=== PATIENT | male | born 1955 | race Asian ===

== ENCOUNTER 2020-11-29 08:36 | Emergency (ER) | payer MEDICARE, OTHER ==
[~2020-11-29] VITALS: Ht 167.6 cm; Wt 59.0 kg
[2020-11-29] VITALS (7 sets, daily range): BP systolic 116–139; BP diastolic 80–94
--- NOTE | 2020-11-29 09:00 | NUR ---
ED Nurse Note: admitted to ER with complaining of palpaltations for the last two days, denies any chest pain or discomformt. breathing with no distress on room air, alert and talkative, he is aware of name, time, place, and situation.
[2020-11-29] MEDS ORDERED: PRILOSEC OTC20 MG ORAL (09:04)
[2020-11-29] MEDS ORDERED: ALBUTEROL2.5 MG/3 M INH (09:04)
[2020-11-29] MEDS ORDERED: FENOFIBRATE200 MG ORAL (09:04)
[2020-11-29] MEDS ORDERED: SPIRIVA18 MCG INH (09:04)
[2020-11-29] MEDS ORDERED: SINGULAIR10 MG ORAL (09:04)
[2020-11-29] MEDS ORDERED: ASPIRIN81 MG ORAL (09:04)
[2020-11-29] MEDS ORDERED: METOPROLOL TART50 M1 ORAL (09:04)
[2020-11-29] MEDS ORDERED: HYDROCHLOROTHIA25 MG ORAL (09:04)
--- NOTE | 2020-11-29 09:14 | Emergency Room Report ---
History of Present Illness General Chief Complaint: Palpitations Present Illness HPI 65-year-old male with history of CAD, hypertension, hyperlipidemia, remote history of paroxysmal A. fib formally on warfarin but no longer, here with palpitations. 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 Says that over the past 4 days he has been intermittently having short episodes of palpitations where he feels as though his heart rate is increased. Patient recently tested negative for COVID- 19 several days ago. Denies fevers, chills, chest pain, back pain, abdominal pain, nausea, vomiting, diarrhea, dysuria, diaphoresis. Has a merchant banker with whom he follows closely. Allergies: Coded Allergies: No Known Allergies (Unverified , 11/29/20) COVID-19 Screening Contact w/high risk pt: No Experienced COVID-19 symptoms?: No COVID-19 Testing performed AUTOMATION DRIVER: No Nursing Documentation-PMH Hx Hypertension: Yes Hx COPD: Yes Review of Systems All Other Systems: negative except mentioned in HPI Physical Exam Vital Signs Date Time Temp Pulse Resp B/P (MAP) Pulse Ox O2 Delivery O2 Flow Rate FiO2 11/29/20 08:46 98.2 108 18 130/80 (97) 98 Room Air Sp02 EP Interpretation: reviewed, normal General Appearance: no apparent distress, alert, non-toxic Head: normocephalic, atraumatic Eyes: bilateral eye normal inspection, bilateral eye PERRL ENT: hearing grossly normal, normal pharynx, no angioedema, normal voice Neck: full range of motion, supple/symm/no masses Respiratory: chest non-tender, lungs clear, normal breath sounds, speaking full sentences Cardiovascular #1: regular rate, rhythm, no edema Cardiovascular #2: 2+ carotid (R), 2+ carotid (L), 2+ radial (R), 2+ radial (L), 2+ dorsalis pedis (R), 2+ dorsalis pedis (L) Gastrointestinal: normal bowel sounds, non tender, soft, non-distended, no guarding, no rebound Rectal: deferred Genitourinary: normal inspection, no CVA tenderness Musculoskeletal: back normal, normal range of motion, gait/station normal, non- tender Neurologic: alert, motor strength/tone normal, oriented x3, sensory intact, responsive, speech normal Psychiatric: judgement/insight normal, memory normal, mood/affect normal, no suicidal/homicidal ideation Lymphatic: no adenopathy Medical Decision Making Diagnostic Impression: Primary Impression: Palpitations ER Course EKG: NSR, right bundle branch block. No ectopy. Rate 89 bpm. LVH Rhythm strip: patient monitored for arrhythmias - no malignant dysrhythmias, runs of PVCs, nor pauses noted CXR: No infiltrate/effusion. Mediastinum within normal limits. No consolidations. No free air under the diaphragm. No bony abnormalities Laboratory Tests Test 11/29/20 09:11 White Blood Count 6.4 K/UL (4.8-10.8) Red Blood Count 4.83 M/UL (4.70-6.10) Hemoglobin 15.7 G/DL (14.2-18.0) Hematocrit 48.4 % (42.0-52.0) Mean Corpuscular Volume 100 FL (80-99) H Mean Corpuscular Hemoglobin 32.6 PG (27.0-31.0) H Mean Corpuscular Hemoglobin Concent 32.5 G/DL (32.0-36.0) Red Cell Distribution Width 13.4 % (11.6-14.8) Platelet Count 270 K/UL (150-450) Mean Platelet Volume 6.2 FL (6.5-10.1) L Neutrophils (%) (Auto) 77.1 % (45.0-75.0) H Lymphocytes (%) (Auto) 7.8 % (20.0-45.0) L Monocytes (%) (Auto) 13.7 % (1.0-10.0) H Eosinophils (%) (Auto) 0.5 % (0.0-3.0) Basophils (%) (Auto) 1.0 % (0.0-2.0) Sodium Level 139 MMOL/L (136-145) Potassium Level 3.9 MMOL/L (3.5-5.1) Chloride Level 102 MMOL/L (98-107) Carbon Dioxide Level 36 MMOL/L (21-32) H Anion Gap 1 mmol/L (5-15) L Blood Urea Nitrogen 20 mg/dL (7-18) H Creatinine 0.9 MG/DL (0.55-1.30) Estimated Glomerular Filtration Rate > 60 mL/min (>60) Glucose Level 108 MG/DL (74-106) H Calcium Level 8.7 MG/DL (8.5-10.1) Total Bilirubin 0.5 MG/DL (0.2-1.0) Aspartate Amino Transferase (AST) 28 U/L (15-37) Alanine Aminotransferase (ALT) 33 U/L (12-78) Alkaline Phosphatase 64 U/L (46-116) Troponin I 0.012 ng/mL (0.000-0.056) Pro-B-Type Natriuretic Peptide 448 pg/mL (0-125) H Total Protein 6.5 G/DL (6.4-8.2) Albumin 3.1 G/DL (3.4-5.0) L Globulin 3.4 g/dL Albumin/Globulin Ratio 0.9 (1.0-2.7) L 65-year-old male here with palpitations intermittently for 4 days. Patient has a remote history of paroxysmal atrial fibrillation and is no longer on blood thinners. He was hemodynamically stable and neurovascularly intact in the emergency department. He was observed on the cardiac nurse practitioner for several hours and remained in normal sinus rhythm. EKG showed right bundle branch block and evidence of LVH, but no acute abnormalities and no abnormal intervals. Troponin negative. Chest x-ray normal. CBC and CMP largely unremarkable. Patient was instructed to follow-up with his merchant banker for possible Holter monitor placement. Told to return to the emergency department any chest pain, sustained palpitations, altered mental status, lightheadedness. He expressed understanding and was discharged. Last Vital Signs Date Time Temp Pulse Resp B/P (MAP) Pulse Ox O2 Delivery O2 Flow Rate FiO2 11/29/20 08:55 97.1 91 23 139/94 100 Room Air Cesar Michael M.D. Nov 29, 2020 09:13
--- NOTE | 2020-11-29 09:40 | NUR ---
ED Nurse Note: blood samples sent to laboratory for analysis.
[2020-11-29 09:49] LABS: ANION GAP 1 mmol/L (5-15); BLOOD UREA NITROGEN 20 mg/dL (7-18); CALCIUM 8.7 MG/DL (8.5-10.1); CARBON DIOXIDE 36 MMOL/L (21-32); CHLORIDE 102 MMOL/L (98-107); CREATININE 0.9 MG/DL (0.55-1.30); POTASSIUM 3.9 MMOL/L (3.5-5.1); SODIUM 139 MMOL/L (136-145)
[2020-11-29 10:01] LABS: EOSINOPHILS % (AUTO) 0.5 % (0.0-3.0); HEMATOCRIT 48.4 % (42.0-52.0); HEMOGLOBIN 15.7 G/DL (14.2-18.0); LYMPHOCYTES % (AUTO) 7.8 % (20.0-45.0); MEAN CORPUSCULAR VOLUME 100 FL (80-99); MONOCYTES % (AUTO) 13.7 % (1.0-10.0); NEUTROPHILS % (AUTO) 77.1 % (45.0-75.0); PLATELET COUNT 270 K/UL (150-450); RED BLOOD COUNT 4.83 M/UL (4.70-6.10); RED CELL DISTRIBUTION WIDTH 13.4 % (11.6-14.8); WHITE BLOOD COUNT 6.4 K/UL (4.8-10.8)
[2020-11-29 10:02] LABS: ALANINE AMINOTRANSFERASE 33 U/L (12-78); ALBUMIN 3.1 G/DL (3.4-5.0); ALBUMIN/GLOBULIN RATIO 0.9 (1.0-2.7); ALKALINE PHOSPHATASE 64 U/L (46-116); ASPARTATE AMINO TRANSFERASE 28 U/L (15-37); BILIRUBIN,TOTAL 0.5 MG/DL (0.2-1.0)
--- NOTE | 2020-11-29 10:30 | NUR ---
ED Nurse Note: Left Antecubital peripheral IV discomntinued and removed. No bleeding or ecchimosis noted around the actecubital after catheter was removed.
--- NOTE | 2020-11-29 10:49 | NUR ---
ED Nurse Note: discharge paper given to patient and reviewed at the bedside, answered questions and concerns.
--- NOTE | 2020-11-29 12:42 | Diagnostic Imaging Report ---
Procedure: XRAY Chest 1v Reason for study: Chest pain Comparison films: None. FINDINGS: A single one view chest is obtained. Vascularity is normal. The lung mock are clear bilaterally. Cardiac and mediastinal silhouette are within normal limits. Slight blunting of the right CP angle may be a tiny effusion versus pleural thickening. The bony thorax appear unremarkable. IMPRESSION: No acute alveolar disease. Tiny right effusion versus pleural thickening.
== END 2020-11-29 10:55 | disposition home or self-care (01) ==
LOC: EMR 09:09
DX: R00.2 Palpitations (principal); I10 Essential (primary) hypertension; J44.9 Chronic obstructive pulmonary disease, unspecified
CPT/HCPCS: 36415; 71045; 80053; 83880; 84484; 85025; 93005; 99284